=== PATIENT | female | born 1975 | race Caucasian/White ===

== ENCOUNTER 2016-04-09 10:08 | Emergency (ER) | payer OTHER ==
[~2016-04-09 10:08] MED LIST: CITA40TA13 PO; CYCL10TA9 PO; DULO30CA50 PO
[2016-04-09 10:25] VITALS: BP 136/74; PULSE 94; RESP 16; O2SAT 97
--- NOTE | 2016-04-09 11:26 | ED.REPORT ---
HPI-Extremity Problem Lower Date of Service Apr 09, 2016 ED Provider: Wm Salgado PA-C This visit is a 40-year-old female with a history of ankylosing spondylitis and chronic lower back pain presents with a chief complaint of a bruise behind left knee. She is concerned about blood clot, stating that blood clots run in her family. She also reports a sensation of urinary retention, and that she has been unable to urinate since waking this morning. Symptoms began at the same time as new small bruises appearing on her upper thighs and right arm pain and her biceps and forearm.She reports occasional lightheaded dizziness and generalized pruritus over the last 2 weeks and a recent addition of Remicade to her medication regimen previous to that. Denies loss of bowel control, saddle anesthesia. Admits lumbar pain which is chronic and at baseline. Also denies unilateral leg swelling, calf pain, recent immobilization, trauma, surgery, cancer. Denies shortness of breath, cough, hemoptysis, chest pain, palpitations. Nursing Notes Stated Complaint: POSSIBLE BLOOD CLOT L KNEE Chief Complaint: Extremity Trauma Nursing Notes Reviewed: Yes Allergies: Coded Allergies: No Known Allergies (Unverified Allergy, Unknown, 03/08/16) Scheduled Citalopram (Citalopram) 40 Mg Tablet 40 MG PO DAILY Duloxetine (Duloxetine) 30 Mg Capsule.dr 30 MG PO DAILY Scheduled PRN Cyclobenzaprine (Cyclobenzaprine) 10 Mg Tablet 10 MG PO TID PRN PRN Spasm General Time Seen by MD: 11:11 Chief Complaint Leg injury left Past Medical History Past Medical History Notes: Ankylosing spondylitis Review of Systems General: Denies fever, chills, malaise. HEENT: Denies congestion, headache, sore throat. Respiratory: Denies dyspnea, cough, shortness of breath, wheezing. Cardiovascular: Denies chest pain, palpitations. Gastrointestinal: Denies vomiting, diarrhea, abdominal pain. Genitourinary: Denies frequency, urgency, dysuria, hematuria. Otherwise as noted in HPI. Physical Exam General: Well appearing, well developed, well nourished, no acute distress. Head: Atraumatic, normocephalic. Eyes: No scleral icterus or injection. No discharge. Vision grossly intact. ENT: Voice clear, hearing grossly intact. Respiratory: Regular rate and rhythm. Breath sounds present, clear to auscultation and equal bilaterally. Cardiovascular: Regular rate and rhythm, without murmur, gallop or rub. No pedal edema. Gastrointestinal: Abdomen flat and non-tender without guarding or rebound. Bowel sounds normoactive. Normal inspection. Skin: Several 1-2 cm mild ecchymoses over her anterior thighs bilaterally. One 2 cm dark purple ecchymosis posterior left knee. Warm and dry. Left knee: Posterior ecchymoses as noted above. Left leg: Calf diameter roughly equal bilaterally, no pitting edema, no tenderness, no Homans sign. Right arm: Normal to inspection, full range of motion shoulder elbow and wrist, diffusely tender over bicep tricep and brachioradialis. No bony tenderness. Neurological: Normal gait, heel/toe, toe walk, heel walk, Romberg. No pronator drift. Grossly nonfocal. Psychological: Alert and oriented. Speech appropriate, linear and logical. Behavior appropriate. Initial Vital Signs Vital Signs (First) Date Time Temp Pulse Resp B/P Pulse Ox O2 Delivery O2 Flow Rate FiO2 04/09/16 10:25 37.0 94 16 136/74 97 Room Air Initial VS: Reviewed, Vital signs normal Interpretation & Diagnostics Interpretation & Diagnostics: Left leg Doppler ultrasound negative for DVT Lab Results Interpretation Result Diagram: 04/09/16 1145 04/09/16 1145 Test 04/09/16 11:45 04/09/16 11:58 White Blood Count 6.1th/mm3 (3.8-10.1) Red Blood Count 4.11mil/mm3 (3.90-5.20) Hemoglobin 12.7g/dL (12.0-15.6) Hematocrit 37.2% (35.0-46.0) Mean Corpuscular Volume 90.5fL (81-100) Mean Corpuscular Hemoglobin 30.9pg (27.0-35.0) Mean Corpuscular Hemoglobin Concent 34.1% (32.0-37.0) Red Cell Distribution Width 12.5% (12.3-15.4) Platelet Count 268bil/L (150-400) Neutrophils (%) (Auto) 48.4% (40-74) Lymphocytes (%) (Auto) 44.4% (14-46) Monocytes (%) (Auto) 5.9% (4-12) Eosinophils (%) (Auto) 0.8% (0-5) Basophils (%) (Auto) 0.3% (0-3) D-Dimer 0.7mg/L (<0.50) Sodium Level 139mEq/L (134-144) Potassium Level 4.4mEq/L (3.5-5.2) Chloride Level 107mEq/L (97-108) Carbon Dioxide Level 20mmol/L (18-29) Blood Urea Nitrogen 9mg/dL (6-20) Creatinine 0.60mg/dL (0.57-1.00) Estimat Glomerular Filtration Rate 159mL/min (>59) Glucose Level 105mg/dL (60-99) Calcium Level 8.7mg/dL (8.5-10.1) Total Bilirubin 0.3mg/dL (0.0-1.2) Aspartate Amino Transf (AST/SGOT) 16U/L (0-50) Alanine Aminotransferase (ALT/SGPT) 11U/L (0-32) Alkaline Phosphatase 42U/L (25-150) Total Protein 6.9g/dL (6.4-8.4) Albumin 4.1g/dL (3.4-5.0) Hold Mukherjee Top Tube Received (Received) Re-Eval/Medical Decision Med Decision/Clinical Course I discussed this case with Dr. Melo 40-year-old female presents with chief complaint possible DVT in her left leg. She denies personal history of blood clots but admits a family history. Became concerned when she noticed a new bruise in the back of her left knee. Physical exam is reassuring however d-dimer slightly elevated, ultrasound negative for DVT. CBC is normal which is reassuring regarding ITP. She additionally complains of urinary retention since awakening this morning. This initially raised concern for cauda equina syndrome especially considering her history of ankylosing spondylitis. She states that her lower lower back pain is chronic and at baseline. Consultation with her twisting frame changer is reassuring that this was highly unlikely. Fortunately, she was able to completely empty her bladder in the emergency department before having a bladder scan performed. She denies bowel dysfunction, saddle anesthesia. She also complains of some pain in her right arm, mostly over her biceps and brachioradialis. She recalls no trauma or vigorous exercise. The arm appears normal on physical examination with some mild tenderness over these areas. Cardiac etiology is unlikely considering her age, lack of cardiac history, lack of risk factors, and absence of other concerning symptoms. Re-Evaluation/Progress : Time of Eval: 12:27 Re-Evaluation/Progress Note: Patient reports that she has been able to completely void her bladder. She did not give a urine sample, encouraged oral fluid intake in an attempt to get a urine sample for urinalysis. D-dimer slightly elevated, ordered a venous Doppler ultrasound Consultation : Referral / Consult Name: Deon Cheney MD Requested Call at: 11:52 Call Returned at: 12:01 Note: Discussed the case with her twisting frame changer. He does not believe the Remicade is responsible for her symptoms of bruising, dizziness, pruritus, urinary retention. States the Remicade is often given with prednisone, which can cause the bruising, though he is unsure if she received this. He adds that cauda equina syndrome, while seen in patients with advanced ankylosing spondylitis, is unlikely here as she has early disease with mild radiological changes. Discharge & Departure Impression: Primary Impression: Bruise Disposition: Home Discharge Condition All VS Reviewed: Yes Condition: Stable Additional Instructions: Evaluation for possible DVT in the ED today. History, physical, and ultrasound are reassuring that this is not a DVT causing a bruise behind your left knee. Blood work is reassuring that you do not have a bleeding or clotting disorder at this time. While I cannot tell you why this bruise appeared behind your knee , or explain her various other symptoms, I feel confident that we have ruled out immediately dangerous causes. I think you are stable and safe to be discharged. Please follow-up with your primary care provider and twisting frame changer next week as planned to further address these issues. Return to emergency department for any new or worsening symptoms including swelling in one leg greater than the other, calf pain, shortness of breath, cough or chest pain. Referrals: Juliet Galvez (PCP) EDSupervising Provider for APC: Ad Bloom DO copies to: Juliet Galvez Seth PA-C Apr 09, 2016 11:26
[2016-04-09 11:52] LABS: BASOPHILS % (AUTO) 0.3 % (0-3); EOSINOPHILS % (AUTO) 0.8 % (0-5); MONOCYTES % (AUTO) 5.9 % (4-12); Mean Corpuscular Hemoglobin 30.9 pg (27.0-35.0); Mean Corpuscular Volume 90.5 fL (81-100); NEUTROPHILS % (AUTO) 48.4 % (40-74); Platelet Count 268 bil/L (150-400)
--- NOTE | 2016-04-09 14:33 | DRSVH ---
PROCEDURE: US VEINOUS LEG DUPLEX UNILATERAL, LEFT INDICATIONS: bruising, elevated d-dimer TECHNIQUE: Real-time imaging, as well as color and pulse Doppler interrogation, were performed of the lower extr emity deep veins from the inguinal ligament to the popliteal fossa. COMPARISON: None. FINDINGS: The deep veins are normally compressible, and free of intraluminal thrombus. Color and pu lse Doppler demonstrate normal phasic intraluminal flow. There is normal augmentation response to di stal compression maneuver. IMPRESSION: No DVT found left leg. Dictated by: Mor Nice M.D. on 04/09/2016 at 14:32 Approved by: Mor Nice M.D. on 04/09/2016 at 14:32
[2016-04-09 14:36] VITALS: BP 132/71; PULSE 89; RESP 16; O2SAT 98
[2016-08-10] MEDS ORDERED: OXYC15TA73 PO (09:32)
[2016-08-10] MEDS ORDERED: OXYC10SY PO (09:32)
== END 2016-04-09 14:37 | disposition home or self-care (01) ==
LOC: SED 10:08
DX: M79.81 Nontraumatic hematoma of soft tissue (principal); R33.9 Retention of urine, unspecified; R42 Dizziness and giddiness; M45.6 Ankylosing spondylitis lumbar region

== ENCOUNTER 2016-09-10 05:12 | Emergency (ER) | payer OTHER ==
[~2016-09-10] VITALS: Ht 170.2 cm; Wt 64.5 kg
[~2016-09-10 05:12] MED LIST changes: +OXYC10SY PO; +OXYC15TA73 PO
[2016-09-10 05:31] VITALS: BP 116/64; PULSE 16; RESP 16; O2SAT 94
[2016-09-10] MEDS ORDERED: 0.9% Sodium Chloride 1,000 ML IV ONE ×2 (05:59→07:41)
[2016-09-10] MEDS ORDERED: Ondansetron 2 mg/mL 2 mL Inj IVPUSH ONE (06:00)
[2016-09-10] MEDS ORDERED: Ketorolac 15 mg/mL Inj IVPUSH ONE (06:00)
[2016-09-10 06:01] LABS: BASOPHILS % (AUTO) 0.3 % (0-3); EOSINOPHILS % (AUTO) 0.5 % (0-5); MONOCYTES % (AUTO) 6.3 % (4-12); Mean Corpuscular Volume 91.9 fL (81-100); NEUTROPHILS % (AUTO) 47.4 % (40-74); Platelet Count 268 bil/L (150-400)
--- NOTE | 2016-09-10 06:05 | ED.REPORT ---
HPI-Headache Date of Service Sep 10, 2016 ED Provider: Jose Rae MD Patient is a 41 year old female with a history of ankylosing spondylitis on chronic Prednisone and immuno suppressants who presents to the ED complaining of a bitemporal headache onset yesterday morning. Associated symptoms include nausea, vomiting, night sweats and diarrhea that started yesterday afternoon. Patient has numbness in her fingers but reports that this is a side effect of the ankylosing spondylitis and is unchanged from her baseline. She denies fever , weakness, problems walking, neck pain, hematochezia or recent trauma. Patient describes the pain as sharp and stabbing and rates it as a 10/10. The patient states that she has been having similar headaches for the past several weeks that have been waking her up from sleeping. The headache went away two days ago but then she woke up with a more severe headache yesterday morning. Previous to these past several weeks she has no history of headaches. Nursing Notes Stated Complaint: HEADACHE/ VOMITING Chief Complaint: Headache Nursing Notes Reviewed: Yes Allergies: Coded Allergies: No Known Allergies (Unverified Allergy, Unknown, 03/08/16) Scheduled Citalopram (Citalopram) 40 Mg Tablet 40 MG PO DAILY Duloxetine (Duloxetine) 30 Mg Capsule.dr 30 MG PO DAILY Oxycodone ER (Oxycontin) 15 Mg Tab.er.12h 15 MG PO BID Scheduled PRN Cyclobenzaprine (Cyclobenzaprine) 10 Mg Tablet 10 MG PO TID PRN PRN Spasm Metoclopramide (Reglan) 10 Mg Tablet 10 MG PO QID PRN PRN For Nausea Oxycodone HCl (Oxycodone HCl) 10 Mg/0.5 Ml Syringe 10 MG PO PRN For Pain General Time Seen by MD: 05:55 Chief Complaint Headache Hx Obtained From: Patient Arrived By: Walk-in Sudden in Onset?: No Onset Occurred: 1 day ago Symptom Duration: Since onset Location: : Temporal bilateral Quality: Sharp, Stabbing Severity: Current: Severe Severity: Maximum: Pain level 10 out of 10 Associated with: Reports: Nausea, Vomiting, Denies: Fever Recent Healthcare: No recent hospitalization, Recent doctor visit Past Medical History Past Medical History Notes: Ankylosing spondylitis Past Medical History depression anxiety Past Surgical History hernia repair Family History Mother- DVT Father- [place] Aunts- cancer Smoking History Unknown if Ever Smoker Social History Other Social History: Good social support, Ambulatory Status Independent Review of Systems Review of Systems Note: night sweats Constitutional: Denies: Chills, Fever GI: Reports: Diarrhea, Nausea, Vomiting, Denies: Hematochezia Musculoskeletal: Denies: Neck pain Neurologic: Reports: Headache, Denies: Numbness, Problem walking, Weakness Complete sys rev & neg: except as marked. Respiratory: Denies: Non-productive cough, Shortness of breath Physical Exam Initial Vital Signs Vital Signs (First) Date Time Temp Pulse Resp B/P Pulse Ox O2 Delivery O2 Flow Rate FiO2 09/10/16 05:31 36.3 16 16 116/64 94 Room Air Initial VS: Reviewed General/Constitutional: Awake, Alert Head / Eyes: Atraumatic, Normocephalic, PERRL, EOMI Neck: Atraumatic, Supple, Full range of motion Neurologic: Oriented X3, Speech NL, No motor deficits, No sensory deficits Respiratory / Chest: Atraumatic, Breath sounds NL, Breath sounds = bilat, No respiratory distress Cardiovascular: Heart rate NL, Regular rhythm, Heart sounds NL Abdomen: Atraumatic, Soft, Non-tender Skin: Atraumatic, Color NL, No rash, Warm, Dry Psychiatric: Affect NL, Mood NL Upper Extremity / MS: Atraumatic, Full range of motion Interpretation & Diagnostics Interpretation & Diagnostics: LUMBAR PUNCTURE FLUROSCOPY: IMPRESSION: Successful fluoroscopically guided lumbar puncture. Dictated by: Nohemy Cazares MD, PhD on 09/10/2016 at 12:32 Approved by: Nohemy Cazares MD, PhD on 09/10/2016 at 12:32 Lab Results Interpretation Result Diagram: 09/10/16 0545 09/10/16 0545 Test 09/10/16 05:45 09/10/16 12:37 White Blood Count 6.4th/mm3 (3.8-10.1) Red Blood Count 4.58mil/mm3 (3.90-5.20) Hemoglobin 14.2g/dL (12.0-15.6) Hematocrit 42.1% (35.0-46.0) Mean Corpuscular Volume 91.9fL (81-100) Mean Corpuscular Hemoglobin 31.0pg (27.0-35.0) Mean Corpuscular Hemoglobin Concent 33.7% (32.0-37.0) Red Cell Distribution Width 13.2% (12.3-15.4) Platelet Count 268bil/L (150-400) Neutrophils (%) (Auto) 47.4% (40-74) Lymphocytes (%) (Auto) 45.3% (14-46) Monocytes (%) (Auto) 6.3% (4-12) Eosinophils (%) (Auto) 0.5% (0-5) Basophils (%) (Auto) 0.3% (0-3) Prothrombin Time 10.4sec (8.1-12.5) Prothromb Time International Ratio 0.97ratio Sodium Level 139mEq/L (134-144) Potassium Level 4.1mEq/L (3.5-5.2) Chloride Level 103mEq/L (97-108) Carbon Dioxide Level 23mmol/L (18-29) Blood Urea Nitrogen 11mg/dL (6-24) Creatinine 0.62mg/dL (0.57-1.00) Estimat Glomerular Filtration Rate 153mL/min (>59) Glucose Level 102mg/dL (60-99) Calcium Level 9.2mg/dL (8.5-10.1) Hold Mukherjee Top Tube Received (Received) CSF Appearance Clear (CLEAR) CSF Color Colorless (COLORLESS) CSF WBC 0/mm3 (0-5) CSF RBC 0/mm3 CSF Mononuclear WBCs % CSF Polynuclear WBCs % CSF Other Cells CSF Glucose 65mg/dL (45-90) CSF Total Protein 24mg/dL (15-45) CT Head Interpretation IMPRESSION: No CT evidence of acute intracranial pathology. Dictated by: Srikanth Coker M.D. on 09/10/2016 at 8:04 Approved by: Srikanth Coker M.D. on 09/10/2016 at 8:0 Interpretation / Wet Read by: Interpret - Radiologist Procedures Lumbar Puncture Text / Dict Note: Unable to successfully insert needle due to the ankylosing spondylitis. Will have to use US or CT guide. Time: 09:57 Procedure Performed by: ED physician (stephanie mae) Consent / Setup / Site Prep: Informed consent provided, Consent from patient , Time-out performed, Hand hygiene observed, Sterile drapes applied, Patient left lateral Skin Preparation Agent: Other (Chloraprep) Local Anesthesia: Lidocaine 1% Procedural Sedation/Analgesia: Analgesia: Dilaudid (1mg) Inserted Needle at: L4 L5 Post-Procedure / Complications: Dressing applied, Patient stable Re-Eval/Medical Decision Re-Evaluation/Progress #1: Time of Eval: 08:15 Re-Evaluation/Progress Note: Discussed CT results and option for an lumbar puncture. Patient agrees to the procedure. Re-Evaluation/Progress #2: Time of Eval: 09:14 Re-Evaluation/Progress Note: Discussed the risks and procedure process. Patient understands and agrees to the plan. All questions were addressed. Giving time for pain medication to help before starting. Re-Evaluation/Progress #3: Time of Eval: 13:13 Re-Evaluation/Progress Note: Discussed CSF results and plan for discharge. Patient understands and agrees to plan. All questions were addressed. Counseled Regarding: Diagnosis, Lab results, Need for follow-up, When/why to return to ED Discharge & Departure Impression: Primary Impression: Headache Headache type: unspecified Headache chronicity pattern: acute headache Intractability: not intractable Qualified Code: R51 - Headache Disposition: Home Discharge Condition All VS Reviewed: Yes Condition: Stable Patient Instructions: Acute Headache (ED) Additional Instructions: Your CT and CSF results were normal and reassuring. No immediate dangerous cause for your headache was identified today. Specifically, no evidence of intracranial hemorrhage or subarachnoid hemorrhage. Not being able to take your regular dose of narcotics earlier, may have played some factor. I recommend trying Tylenol or ibuprofen for the pain in addition to your regular pain medication. You can take Reglan (metoclopramide) as prescribed. Limit your exertion today, walking is fine. If you develop a headache that greatly improves when lying down and worsens with standing, this is most likely a post lumbar puncture headache and is nothing to be concerned about. Follow up with your primary care physician today to discuss the next steps for treatment options. Return to the emergency department if you develop any new or concerning symptoms. Referrals: Juliet Galvez (PCP) Alessandro Attestation Portions of this note were transcribed by Meri Crum. I, Dr. Rae personally performed the history, physical exam and medical decision-making; I reviewed and confirmed the accuracy of the information in the transcribed note. Signed by: Alessandro Calvin, 09/10/16 and 1314 copies to: Juliet Galvez Kirk H MD Sep 10, 2016 06:05 Jenny Crum Sep 10, 2016 06:43
[2016-09-10] MEDS ORDERED: Dexamethasone 10 mg/mL Inj IVPUSH ONE (07:45)
[2016-09-10] MEDS ORDERED: MetoCLOpramide 5 mg/mL 2 mL Inj IVPUSH ONE (07:45)
--- NOTE | 2016-09-10 08:13 | DRSVH ---
PROCEDURE: CT BRAIN WITHOUT CONTRAST ([id number]) INDICATIONS: worst headache, no trauma or fever TECHNIQUE: Noncontrast 4.5 mm thick angled axial sections acquired from the foramen magnum to the vertex, with c oronal reformats. COMPARISON: [facility], CT, BRAIN W/O CONTRAST, 01/10/2009, 17:57. FINDINGS: Image quality: Excellent. CSF spaces: Basal cisterns are patent. No extra-axial fluid collections. Ventricles are normal in size and shape. Brain: No midline shift. No intracranial masses or hemorrhage. Rivas-white matter interface is norm al. Skull and face: Calvarium and visualized facial bones are intact, without suspicious lesions. Sinuses: Visualized sinuses and mastoids are clear. IMPRESSION: No CT evidence of acute intracranial pathology. Dictated by: Srikanth Coker M.D. on 09/10/2016 at 8:04 Approved by: Sriknath Coker M.D. on 09/10/2016 at 8:06
[2016-09-10] MEDS ORDERED: HYDROmorphone 1 mg/mL Inj IVPUSH ONE (08:20)
[2016-09-10] MEDS ORDERED: oxyCODONE ER 10 mg ER12 Tablet PO ONE (08:20)
[2016-09-10] MEDS ORDERED: oxyCODONE ER 20 mg ER12 Tablet PO ONE (08:40)
[2016-09-10 10:36] LABS: INR 0.97 ratio
[2016-09-10 11:00] VITALS: BP 93/61; PULSE 87; O2SAT 95
--- NOTE | 2016-09-10 12:34 | DRSVH ---
PROCEDURE: X-RAY LUMBAR PUNCTURE ([id number]) INDICATIONS: headache TECHNIQUE: The indications, alternatives, benefits, risks, and complications were explained to the patient. Kevin floyd informed consent was obtained and placed in the chart. The patient was placed in a prone positi on on the fluoroscopy table, and a level was chosen for percutaneous access under fluoroscopic guidan ce. The site was prepped and draped in a sterile fashion. After local anaesthetic, a spinal needle was then used to enter the intrathecal space, with return of cerebrospinal fluid. After obtaining sufficient fluid, the needle was then withdrawn, and a bandage applied to the punctur e site. FINDINGS: Puncture level: L2-L3 Needle: Long-and spinal needle. Opening pressure: 14 cm. CSF volume and description: 7 cc of clear CSF Medications: 1% lidocaine for anaesthesia. Complications: None. Laboratories: As ordered by referring clinician. IMPRESSION: Successful fluoroscopically guided lumbar puncture. Dictated by: Nohemy Cazares MD, PhD on 09/10/2016 at 12:32 Approved by: Nohemy Cazares MD, PhD on 09/10/2016 at 12:32
[2016-09-10 13:06] LABS: APPEARANCE,CSF CLEAR (CLEAR); COLOR,CSF COLORLESS (COLORLESS); WHITE BLOOD CELL,CSF 0 /mm3 (0-5)
[2016-09-10 13:07] LABS: APPEARANCE,CSF CLEAR (CLEAR); COLOR,CSF COLORLESS (COLORLESS); WHITE BLOOD CELL,CSF 0 /mm3 (0-5)
[2016-09-10] MEDS ORDERED: METO-301 PO (13:32)
[2016-09-10 14:30] VITALS: BP 105/63; PULSE 74; RESP 20; O2SAT 96
== END 2016-09-10 14:20 | disposition home or self-care (01) ==
LOC: SED 05:12
DX: R51 Headache (principal); R11.2 Nausea with vomiting, unspecified; R19.7 Diarrhea, unspecified; F41.8 Other specified anxiety disorders
CPT/HCPCS: 36415; 62270; 70450; 77003; 80048; 82945; 84155; 85025; 85610; 87070; 87205; 87496; 87498; 87529; 87532; 87653; 87798; 89051; 96361; 96374; 96375; 99285; J1100; J1170; J1200; J1885; J2405; J2765; J7030